=== PATIENT | female | born 1980 | race Caucasian/White ===

== ENCOUNTER 2018-04-01 04:49 | Observation (INO) | END 2018-04-02 14:19 | disposition home or self-care (01) ==

== ENCOUNTER 2018-11-05 17:35 | Inpatient (IN) | payer OTHER ==
[~2018-11-05 17:35] MED LIST: ENOX80DI2 SC
[2018-11-05] MEDS ORDERED: MISOPROSTOL 200 MCG TAB PR PRN (18:30)
[2018-11-05] MEDS ORDERED: OXYTOCIN 30 UNITS/LR 500 ML IV PRN (18:30)
[2018-11-05] MEDS ORDERED: CARBOPROST 250 MCG INJ IM PRN (18:30)
[2018-11-05] MEDS ORDERED: IBUPROFEN 600 MG TAB PO PRN (18:30)
[2018-11-05] MEDS ORDERED: BUTORPHANOL 2 MG INJ IV PRN (18:30)
[2018-11-05] MEDS ORDERED: METHYLERGONOVINE 0.2 MG INJ IM PRN (18:30)
[2018-11-05] MEDS ORDERED: OXYTOCIN 30 UNITS/LR 500 ML IV SCH ×2 (18:30)
[2018-11-05] MEDS ORDERED: LIDOCAINE 1% (MPF) 30 ML INJ INJ PRN (18:30)
--- NOTE | 2018-11-05 19:41 | NSTRPT ---
NST Information Datetime Report Generated by CPN: 11/05/2018 19:41 Datetime: 11/02/2018 08:14 NST Information EGA: 38.2 Test Number: 11 Time on Monitor: 11/02/2018 08:35 Time off Monitor: 11/02/2018 09:02 NST Duration (Min): 27 Reason for NST: Other Reason for NST Other: Advanced Maternal Age, Positive Factor 5/DVT Test and Monitor Explained: Monitor Explained; Test Explained; Verbalized Understanding Pulse: 115 Resp: 19 SBP: 119 DBP: 76 Test Evaluation NST Interventions: None Patient States Movement: Present Contraction Frequency: X1(denies) FHR Baseline : 130 Variability: Moderate 6-25bpm Accelerations: 15X15 Decelerations: None FHR Category: Category I NST Results: Reactive Comments: To u/s. IVETT 14.0cm. CEPHALIC. Electronically Signed By E-Signature: with User ID: [id number] Datetime: 10/30/2018 08:16 NST Information EGA: 37.6 NST Duration (Min): 28 Datetime: 10/26/2018 08:10 NST Information EGA: 37.2 NST Duration (Min): 20 Datetime: 10/23/2018 08:08 NST Information EGA: 36.6 NST Duration (Min): 24 Datetime: 10/19/2018 08:38 NST Information EGA: 36.2 NST Duration (Min): 34 Datetime: 10/16/2018 08:19 NST Information EGA: 35.6 NST Duration (Min): 26 Datetime: 10/12/2018 08:05 NST Information EGA: 35.2 NST Duration (Min): 20 Datetime: 10/09/2018 08:06 NST Information EGA: 34.6 NST Duration (Min): 20 Datetime: 10/05/2018 08:05 NST Information EGA: 34.2 NST Duration (Min): 26 Datetime: 10/02/2018 08:12 NST Information EGA: 33.6 NST Duration (Min): 21 Datetime: 09/28/2018 09:18 NST Information EGA: 33.2 NST Duration (Min): 22 Datetime: 09/25/2018 10:47 NST Information EGA: 32.6 NST Duration (Min): 26
[2018-11-05] MEDS ORDERED: CLINDAMYCIN 900 MG/D5W (PMX) 50 ML IVPB ONE (20:31)
[2018-11-05] MEDS: MISOPROSTOL 50 MCG CAPSULE PO SCH (20:40)
[2018-11-05] MEDS: LACTATED RINGER'S 1,000 ML IV SCH (20:41)
[2018-11-05] MEDS ORDERED: CLINDAMYCIN 900 MG/D5W (PMX) 50 ML IVPB SCH (21:00)
[2018-11-05] MEDS: CLINDAMYCIN 900 MG/D5W (PMX) 50 ML IVPB SCH (21:07)
--- NOTE | 2018-11-05 23:17 | QN ---
Documentation Comment HEMATOLOGY CONSULTATION DICTATED 38 y/o female in 39th week of first . Was diagnosed with RLE DVT 03/2018. Was found to be homozygous for Factor V Leiden mutation. Remainder of evaluation for "thrombophilia" was negative except for sl decrease in Protein S activity. Pt has been receiving enoxaparin, 80 mg BID since diagnosis of DVT. Was also found to be at that time. Pt now admitted to be induced. Last dose of enoxaparin was over 12m hours ago. Should resume therapeutic doses of enoxaparin 6 hours after vaginal delivery or `12 hr after . Continue for 6 weeks. Pt has mildly decreased platelets. Most likely "gestational thrombocytopenia" but should r/o HIT. Will request heparin associated platelet antibodies in AM. Thank you, MD MANUEL Ahumada STANLEY H MD Nov 05, 2018 23:17
--- NOTE | 2018-11-05 23:40 | CONS ---
DATE OF ADMISSION: 11/05/2018 DATE OF CONSULTATION: 11/05/2018 TYPE OF CONSULTATION: Hematology REQUESTING PHYSICIAN: Dr. Fozia Duran REASON FOR CONSULTATION: Thrombophilia, heterozygous for factor V Leiden mutation. Dear Dr. Duran: Thank you very much for asking me to see this very pleasant patient in hematologic consultation. HISTORY OF PRESENT ILLNESS: As you know, Ms. Gonzalez is a 38-year-old female who is entering her 39th w [place] of her first . The patient was diagnosed as having a deep vein thrombosis of the right lower extremity in 03/2018. At that time, the patient was seen in the emergency with painful swelling of the right calf. She was found to have a distal right femoral and popliteal deep vein thrombosis. At that time, the patient did undergo evaluation and was found in fact to be homozygous for factor V Leiden mutation. The patient at that time was also found to be . She was unaware of pregnan cy prior to this. The patient was immediately started on enoxaparin and has been taking enoxaparin 80 mg subcutaneously b.i.d. since that time. The patient is now being admitted to [facility] to undergo induction. The patient did take her last dose of enoxaparin approximately 14 hours ago. As noted, the patient has been found to be homozygous for factor V Leiden mutation. Other evaluation for thrombophilia was negative except that the patient was demonstrated to have a slight decrease of protein S activity of 46. The protein C activity was normal as was the antithrombin III. There was no evidence of a lupus anticoagulant noted. The patient also was negative for prothrombin gene muta tion. The patient has had no complications during this . She has not had any unusual bruising or bleeding. She has not complained of chest pain or shortness of breath. The patient has not had hypertension, edema or gestational hyperglycemia. On admission at this time, the patient's white count is 8300 with an absolute neutrophil count of 620 0, hemoglobin is 12.8, hematocrit 38.2, and platelet count is 104,000. MPV is 11.7. The patient's protime on admission is 11.5 seconds and INR 0.83 and PTT is 31.2. PAST MEDICAL HISTORY: Unremarkable except for a history of exercise-induced asthma. Patient has had no surgical procedures in the past. She has had no previous thromboembolic episodes. As noted, this is the patient's first . She has not taken oral contraceptives in the past o r any type of exogenous hormones. FAMILY HISTORY: Remarkable in that her parents are at least both heterozygous for factor V Leiden mu tation. The patient's father has had 2 different deep vein thromboses. The patient's mother has not had any deep vein thromboses. The patient does have a brother who has not had any thromboembolic ep isodes. He has not been tested but must at least be heterozygous. The remainder of the patient's family history is unremarkable. There is no history of embolism in an y other member of the family. There is no history of increased frequency of spontaneous abortions. MEDICATIONS: Prior to admission included: 1. vitamins. 2. Lovenox 80 mg b.i.d. 3. Occasional albuterol inhaler. ALLERGIES: THE PATIENT IS ALLERGIC TO PENICILLIN. SOCIAL HISTORY: The patient is . 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 She has never knowingly been exposed to industrial toxins or ionizing radiation. The patient has nev er smoked and uses alcohol minimally. Has not had any alcohol during . PHYSICAL EXAMINATION: GENERAL: At this time reveals a well-developed, well-nourished female who is in no acute distress. VITAL SIGNS: Temperature is 98, pulse 88 per minute and regular, respirations 18, blood pressure is 130/60. SKIN: No ecchymosis, no petechiae or rashes. HEENT: Normocephalic. No evidence of trauma. Pupils equal, round, reactive to light and accommodat ion. Sclerae nonicteric. Oral mucosa is moist without lesions. Tongue is well papillated. There i s no gingival hyperplasia or hypertrophied Waldeyer ring, no mucosal telangiectasias. NECK: Supple. No jugular venous distention or thyroid enlargement. No carotid bruits. CHEST: Clear to auscultation and percussion. No rhonchi, wheezes, rales or rubs. HEART: Regular sinus rhythm, no S3, S4 or murmurs. No rubs. ABDOMEN: Distended, consistent with a 39-week . EXTREMITIES: Good range of motion. No clubbing or cyanosis. The right lower extremity calf is larg er in diameter than the left. There is no tenderness. No palpable cords at this time. NEUROLOGIC: Normal. DISCUSSION: This patient was demonstrated to have a deep vein thrombosis which actually led to the d iagnosis of . The patient was found to be homozygous for factor V Leiden mutation. At the same time, there was als o a mild decrease in protein S activity. Protein S is a naturally occurring anticoagulant which can drop at the time of or on exposure to hormones. This, coupled with the factor V Leiden mut ation, is certainly adequate explanation for the patient's deep vein thrombosis. The patient, as noted, has been receiving enoxaparin at therapeutic doses during . This has now been held. The patient will need to resume enoxaparin after delivery. She will then require therapeutic doses f or another 6 weeks. The timing of reinitiation will depend on whether the patient has a vaginal delivery versus as a cesa rean section. If the patient has a vaginal delivery, the enoxaparin can be reinstituted at 6 hours. If there is a , then reinstitution of anticoagulation should be 12 hours. As noted, the patient does have a mild thrombocytopenia. The mean platelet volume is increased. Thi s is most likely a mild thrombocytopenia associated with . The patient, however, has been o n enoxaparin and therefore should be screened for heparin-induced thrombocytopenia, as is expected sh e will continue on a heparin-like agent for at least 6 weeks. Once again, thank you very much for the opportunity of participating in the medical care of this very pleasant patient. I will be happy to follow this patient with you and assist in her hematologic morales luation and followup as necessary. Dictated By: SATISH JACKSON MD SR/NTS Conf#: [id number] DID#: [id number] CC: FOZIA DURAN MD;*End*
[2018-11-06] MEDS: MISOPROSTOL 50 MCG CAPSULE PO SCH ×5 (00:32→20:15)
[2018-11-06] MEDS: CLINDAMYCIN 900 MG/D5W (PMX) 50 ML IVPB SCH ×3 (04:30→20:15)
[2018-11-06] MEDS: LACTATED RINGER'S 1,000 ML IV SCH ×2 (05:58→13:48)
--- NOTE | 2018-11-06 09:13 | PREOPHP ---
DATE OF ADMISSION: 11/05/2018 HISTORY OF PRESENT ILLNESS: This is a 38-year-old lady, 1, and her EDC is 11/13/2018. She w as admitted to labor and delivery area for induction. This patient has a history of hemophilia and h ad been followed up by Dr. Mishra, our perinatologist. She recommended the patient to be delivered at 39 weeks, so she was admitted 11/05 to be started on induction. She has been on Lovenox and stopped her Lovenox 24 hours prior to admission per Dr. Mishra's recommendation. She has a factor V with he sanjaylia. This case was discussed bluntly with Dr. Mishra and she advised the patient to be induced pr ocedures were explained to the patient and she understood everything totally. The risks, benefits an d alternatives were discussed with her as well. PAST PERSONAL HISTORY: No history of TB. The patient has a history of asthma and the last inhaler t hat she used was about 2 years ago. She had menarche at the age of 12. She had care in my [place] office and the care was uneventful. GYNECOLOGICAL HISTORY: She had menarche at the age of 12, every 28 days interval, 3 to 4 days durati on, and moderate in amount. FAMILY HISTORY: Noncontributory. REVIEW OF SYSTEMS: CARDIOVASCULAR: No chest pains. RESPIRATORY: No cough. GASTROINTESTINAL: No diarrhea, no vomiting. GENITOURINARY: No dysuria. PHYSICAL EXAMINATION: GENERAL: Reveals a conscious, coherent lady and in no acute distress. VITAL SIGNS: Her blood pressure 120/80, pulse rate 80 per minute, respirations 16 per minute. BREASTS, HEART AND LUNGS: Within normal limits. ABDOMEN: Soft, fundic height 36 cm. heart tones 140 per minute. PELVIC: On admission revealed the cervix to be fingertip, thick, station -2 in cephalic presentation with the bag of water intact. EXTREMITIES: No pedal edema. ADMITTING DIAGNOSES: 1. A 38 and 6/7 weeks intrauterine . 2. History of hemophilia. PLAN: The patient was planned to be induced and to be delivered at 39 weeks. Dictated By: WINIFRED ARENAS/KAEL Conf#: [id number] DID#: [id number]
[2018-11-06] MEDS ORDERED: MISOPROSTOL 200 MCG TAB PR PRN ×2 (15:00→20:00)
[2018-11-06] MEDS ORDERED: OXYTOCIN 30 UNITS/LR 500 ML IV PRN ×2 (15:00→20:00)
[2018-11-06] MEDS ORDERED: CARBOPROST 250 MCG INJ IM PRN ×2 (15:00→20:00)
[2018-11-06] MEDS ORDERED: METHYLERGONOVINE 0.2 MG INJ IM PRN ×2 (15:00→20:00)
--- NOTE | 2018-11-06 16:49 | PREAC ---
Date/Time of Note Date/Time of Note DATE: 11/06/18 TIME: 16:47 Anesthesia Eval and Record Evaluation Time Pre-Procedure Interview DATE: 11/06/18 TIME: 16:47 Age 38 Sex female NPO: 8 hrs Preoperative diagnosis iup at 39 weeks Planned procedure primary c section Past Medical History Past Medical History: Includes : Other (hx of dvt on lovenox) Surgery & Anesthesia Issues No known issue Meds Anticoagulation: Yes (lovenox stopped 11/04) Beta Vanessa within 24 hr: No Reason Beta Vanessa not given: Pt. not on B-Vanessa Active Scripts Enoxaparin Sodium (Enoxaparin Sodium) 80 Mg/0.8 Ml Syringe, 80 MG SC BID for 14 Days, #28 SYR Prov:LORNA ANDRADE 04/02/18 Enoxaparin Sodium (Enoxaparin Sodium) 80 Mg/0.8 Ml Syringe, 80 MG SC Q12 for 90 Days, #180 SYR 1 Refill Prov:RAYMONDLORNA 04/02/18 Current Medications Lactated Ringer's 1,000 ml @ 125 mls/hr Q8H IV Last administered on 11/06/18at 13:48; Admin Dose 125 MLS/HR; Start 11/05/18 at 18:27 Butorphanol Tartrate (Stadol) 2 mg Q2H PRN IV .PAIN SCALE 6-10; Start 11/05/18 at 18:30 Lidocaine (Xylocaine 1% (Mpf)) 30 ml ONCE PRN INJ .EPISIOTOMY; Start 11/05/18 at 18:30 Oxytocin/Lactated Ringer's 500 ml @ 500 mls/hr ONCE POST IV ; Start 11/05/18 at 18:30 Oxytocin/Lactated Ringer's 500 ml @ 125 mls/hr POST IV ; Start 11/05/18 at 18:30 Ibuprofen (Motrin) 600 mg ONCE PRN PO .PAIN 1-5; Start 11/05/18 at 18:30 Oxytocin/Lactated Ringer's 500 ml @ 0 mls/hr ONCE PRN IV .VAGINAL BLEEDING; Start 11/05/18 at 18:30 Methylergonovine Maleate (Methergine) 0.2 mg ONCE PRN IM .VAGINAL BLEEDING; Start 11/05/18 at 18:30 Carboprost Tromethamine (Hemabate) 250 mcg ONCE PRN IM .VAGINAL BLEEDING; Start 11/05/18 at 18:30 Misoprostol (Cytotec) 1,000 mcg ONCE PRN NV .VAGINAL BLEEDING; Start 11/05/18 at 18:30 Misoprostol (Cytotec 50 Mcg Capsule) 50 mcg Q4 PO Last administered on 11/06/18at 12:32; Admin Dose 50 MCG; Start 11/05/18 at 20:00 Clindamycin HCl/ Dextrose 50 ml @ 50 mls/hr Q8 IVPB Last administered on 11/06/18at 12:32; Admin Dose 50 MLS/HR; Start 11/05/18 at 21:00 Oxytocin/Lactated Ringer's 500 ml @ 0 mls/hr ONCE PRN IV .VAGINAL BLEEDING; Start 11/06/18 at 15:00 Methylergonovine Maleate (Methergine) 0.2 mg ONCE PRN IM .VAGINAL BLEEDING; Start 11/06/18 at 15:00 Carboprost Tromethamine (Hemabate) 250 mcg ONCE PRN IM .VAGINAL BLEEDING; Start 11/06/18 at 15:00 Misoprostol (Cytotec) 1,000 mcg ONCE PRN NV .VAGINAL BLEEDING; Start 11/06/18 at 15:00 Meds reviewed: Yes Allergies Coded Allergies: Penicillins (Verified Allergy, Unknown, 04/01/18) Allergies Reviewed: Yes Labs/Studies Labs Reviewed: Reviewed by anesthesiologist Result Diagram: 11/06/18 0613 11/05/18 1911 Laboratory Tests 11/05/18 19:11 11/06/18 06:13 Blood Bank Test 11/05/18 19:11 Antibody Screen NEGATIVE Blood Type O POSITIVE Rh Immune Globulin Candidate NO test: Positive Pre-procedure Exam Airway: Adequate mouth opening, Adequate thyromental dist Mallampati: Mallampati I Teeth: Normal Lung: Normal Heart: Normal ASA Physical Status ASA physical status: 2 Emergency: None Planned Anesthetic Neuraxial: Spinal Planned Pain Management Sub-arachniod narcotics, Parenteral pain med Pre-operative Attestations Prior to commencing anesthesia and surgery, the patient was re-evaluated, there was verification of: *The patient's identity *The results of appropriate recent lab work and preoperative vital signs *The above evaluation not changing prior to induction *Anesthetic plan, risk benefits, alternative and complications discussed with patient/family; questions answered; patient/family understands, accepts and wishes to proceed. DIMITRI CAO Nov 06, 2018 16:49
--- NOTE | 2018-11-06 16:52 | PN ---
DATE: 11/06/2018 SUBJECTIVE: The patient states she is feeling well. No complaints of abdominal pain. She has not e xperienced any contractions. The patient denies any shortness of breath or chest pain. PHYSICAL EXAMINATION GENERAL: The patient is a well-developed, well-nourished female in no acute distress. VITAL SIGNS: Temperature 98.3 orally, pulse 78 per minute and regular, respirations 17, blood pressu re 105/55, pulse oximetry 96% on room air. SKIN: No ecchymosis, no petechiae or rashes. HEENT: Normocephalic. No evidence of trauma. Pupils equal, round, react to light and accommodation . Sclerae nonicteric. Oral mucosa is moist without lesions. Tongue is well papillated. No gingiva l hyperplasia, no hypertrophy or Waldeyer ring. NECK: Supple. No jugular venous distention or thyroid enlargement. CHEST: Clear to auscultation and percussion. No rhonchi, wheezes, rales or rubs. NODES: No palpable lymphadenopathy in any lymph node bearing area. HEART: Regular sinus rhythm, no S3, S4, murmurs or rubs. ABDOMEN: Distended, consistent with a 39 week . EXTREMITIES: Good range of motion, no clubbing, edema or cyanosis. No palpable cords or Homans sign . There are athrombotic pumps on the lower extremities. NEUROLOGIC: Normal. LABORATORY DATA: White blood cell count 6000 with an absolute neutrophil count of 3700, hemoglobin 1 2.6, hematocrit 38.6, platelet count 79,000 with an MPV of 12.2. ASSESSMENT: 1. A 39 week . 2. Thrombophilia due to homozygosity of factor V Leiden mutation. PLAN: The patient is to be induced. As noted she now has been off of Lovenox for 24 hours. Lovenox will be resumed at therapeutic doses after delivery. It should be reinstituted 6 hours after a vaginal delivery or 12 hours following section. The patient will continue on therapeutic Lovenox for 6 weeks. As noted previously, this patient does have mild thrombocytopenia. Today, platelet count is 79,000 w ith an MPV of 12.2. This suggests peripheral destruction with increased production of young platelet s. As noted in my original consultation, I do feel this is most likely the incidental thrombocytopenia f requently associated with which increases in frequency toward the delivery date. I have requested a heparin-induced platelet antibody studies to make sure the patient does not have H IT which would require a change in her anticoagulation. Dictated By: SATISH JACKSON MD SR/NTS Conf#: [id number] DID#: [id number] CC: WINIFRED VALENZUELA MD;*EndCC*
[2018-11-06] MEDS ORDERED: PHENYLephrine (100 MCG/ML) 10ML SYG ONE (18:00)
[2018-11-06] MEDS ORDERED: DEXAMETHASONE 4 MG/ML 1 ML INJ ONE (18:02)
[2018-11-06] MEDS ORDERED: ONDANSETRON 4 MG INJ ONE (18:03)
[2018-11-06] MEDS ORDERED: morphine SULFATE/PF (10 MG/10 ML) INJ ONE (18:04)
[2018-11-06] MEDS ORDERED: FENTAnyl 50 MCG/ML VIAL ONE (18:04)
[2018-11-06] MEDS ORDERED: OXYTOCIN 30 UNITS/LR 500 ML IV ONE (18:06)
[2018-11-06] MEDS ORDERED: HYDROmorphONE 0.5 MG/0.5 ML SYG IV PRN ×2 (18:30)
[2018-11-06] MEDS ORDERED: DIPHENHYDRAMINE 50 MG INJ IV PRN (18:30)
[2018-11-06] MEDS ORDERED: ZOLPIDEM 5 MG TAB PO PRN (18:30)
[2018-11-06] MEDS ORDERED: NALOXONE (0.4 MG/ML) INJ IV PRN (18:30)
[2018-11-06] MEDS ORDERED: ONDANSETRON 4 MG INJ IV PRN (18:30)
--- NOTE | 2018-11-06 18:50 | PREOPHP ---
DATE OF ADMISSION: 11/05/2018 ADDENDUM HISTORY OF PRESENT ILLNESS: See dictated history and physical. PHYSICAL EXAMINATION: See dictated history and physical. ADMITTING DIAGNOSIS: 39. ADMITTING DIAGNOSIS: This patient is a 38 and 6/7 weeks intrauterine with a hemophiliac wh ere the patient had received Lovenox and had stopped Lovenox per Dr. Mishra's recommendation. Per Dr. Mishra is recommendations, she advised the patient to be induced. On admission, the cervix was fing ertip and thick. She received 5 doses Cytotec 50 mcg After 5 doses, the patient was having mild irre gular contraction. PELVIC: Revealed the cervix to be still fingertip and still thick and station -2. At this point in time, Dr. Mishra was reconsulted and she advised for the patient to have a and that she will be according to Dr. Mishra and Dr. Humphrey the bird keeper. She will be restarted on Lovenox 12 ho urs after the . The plans were explained to the patient and to her and both underst ood everything totally. The risks, benefits, and alternatives were discussed with them as well. Dictated By: WINIFRED ARENAS/KAEL Conf#: [id number] DID#: [id number]
--- NOTE | 2018-11-06 18:54 | CONS ---
DATE OF ADMISSION: 11/05/2018 DATE OF CONSULTATION: 11/06/2018 I do recommend section since the patient has not responded to 6 doses of Cytotec and has bee n off of her therapeutic dose of Lovenox secondary to thrombophilia for 48 hours, therefore 100% I do recommend a section. Dictated By: DANIEL HOUSTON/KAEL Conf#: [id number] DID#: [id number]
[2018-11-06] MEDS ORDERED: LACTATED RINGER'S 1,000 ML IV SCH (19:31)
[2018-11-06] MEDS ORDERED: OXYTOCIN 30 UNITS/LR 500 ML IV SCH (19:31)
--- NOTE | 2018-11-06 19:31 | OPPN ---
Date/Time of Note Date/Time of Note DATE: 11/06/18 TIME: 19:29 Operative Report Planned Procedure Procedure date Nov 06, 2018 Procedure(s) PRIMARY CSECTION Performed by see signature line Associate Manager: GUILLERMO NIXON MD 2nd Associate Manager none Pre-procedure diagnosis 39 WEEKS IUP WITH HISTORY OF HEMOPHILIA [id number] Anesthesia Type: [id number] spinal Post-Procedure Post-procedure diagnosis 39 WEEKS IUP HISTORY OF HEMOPHILIA Findings Live Baby GIRL, Apgars 9and 9, weight [], position [], [] presentation []cord.5LBS 4OZ 19 INCHES LONG Estimated Blood Loss: 500 - 600 mls Specimen(s) none Grafts/Implant(s) PLACENTA Complication(s) none WINIFRED VALENZUELA MD Nov 06, 2018 19:31
[2018-11-06] MEDS ORDERED: LANOLIN HPA 1 PKT TOP PRN (20:00)
[2018-11-06] MEDS ORDERED: METHYLERGONOVINE 0.2 MG TAB PO PRN (20:00)
[2018-11-06 20:15] VITALS: BP 124/77; PULSE 56; RESP 18
[2018-11-06 20:45] VITALS: BP 140/77; PULSE 76
[2018-11-06] MEDS: SENNA/DOCUSATE NA (8.6MG/50MG) TAB PO SCH (21:00)
--- NOTE | 2018-11-06 21:03 | PAC ---
Date/Time of Note Date/Time of Note DATE: 11/06/18 TIME: 21:02 Post-Anesthesia Notes Post-Anesthesia Note Last documented vital signs 125/76 87 15 98% 98.1 TEMP Activity: WNL Respiratory function: WNL Cardiovascular function: WNL Mental status: Baseline Pain reasonably controlled: Yes Hydration appropriate: Yes Nausea/Vomiting absent: Yes DIMITRI CAO Nov 06, 2018 21:03
[2018-11-06] MEDS: KETOROLAC 30 MG INJ IV PRN (23:25)
[2018-11-07] VITALS: BP 112/68; PULSE 58; RESP 18
[2018-11-07 04:00] VITALS: BP 106/58; PULSE 64; RESP 20
[2018-11-07 08:00] VITALS: BP 102/67; PULSE 80; RESP 18
[2018-11-07] MEDS ORDERED: ENOXAPARIN 80 MG/0.8 ML SYG SC SCH ×2 (09:00→10:30)
[2018-11-07] MEDS: SENNA/DOCUSATE NA (8.6MG/50MG) TAB PO SCH ×2 (09:00→21:01)
[2018-11-07] MEDS ORDERED: IBUPROFEN 800 MG TAB PO PRN (09:30)
[2018-11-07] MEDS ORDERED: HYDROCODONE/APAP (5/325) TAB PO PRN (09:30)
--- NOTE | 2018-11-07 09:52 | OPR ---
DATE OF OPERATION: 11/06/2018 PREOPERATIVE DIAGNOSES: A 39 weeks intrauterine in labor, failure to progress and history of hemophilia. POSTOPERATIVE DIAGNOSES: A 39 weeks intrauterine in labor, failure to progress and history of hemophilia. Multiple fibroids in the uterus. She delivered a healthy baby girl, Apgars 9 and 9, at 1815 p.m., weighing 5 pounds 14 ounces, 19 inches long. OPERATION PERFORMED: Primary low transverse section. SURGEON: Winifred Duran MD TUNNEL MUCKER: Jeff Deleon MD ANESTHESIA: Spinal. ANESTHESIOLOGIST: Dr. Head. OPERATIVE TECHNIQUE: Under spinal anesthesia, the patient was prepped and draped in the usual fashio n for abdominal surgery. After checking for the effect of the anesthesia, a Pfannenstiel incision, 1 2 cm skin incision was performed. The incision was carried from the skin up to the fascia. Upon ope rosalind the skin up to the fascia, small blood vessels were noted to be oozing and these were all cauter ized. Fascia was opened transversely followed by splitting the muscles vertically and the peritoneum vertically. Upon opening the abdominal cavity, the bladder blade was put in place. A small tonia wa s performed from the serosa up to the endometrium on the lower uterine segment and the tonia was zaheer ed sideways with the aid of my 2 fingers. My left hand was inserted on the lower segment of the uter us and the bag of water was ruptured. Clear fluid was noted. Baby's head was delivered and baby's a irways were quickly suctioned with amniotic fluid. The anterior shoulder, posterior shoulder, and re st of the body of the baby was delivered. Baby's airway was quickly suctioned with amniotic fluid. Cord was clamped after 30 seconds. The baby was handed to the nursery nurse and to the respiratory t ech. The placenta was delivered manually and complete. The uterus was exteriorized. The uterus was cleansed with wet lap sponge to make sure that no membranes were left behind. After correct s ponge count, the uterus was closed in the usual fashion using #1 chromic for the first layer, continu ous locking suture was used followed by #1 chromic for the second layer, imbricating sutures were use d. Bleeders were checked, and there was no bleeding noted. Both tubes and ovaries were inspected. They were healthy looking. The broad ligament was checked for any hematoma and there was none noted. There were multiple fibroids noted on the uterus, one on the left upper fundal portion of the uteru s measuring about 8 x 8 cm. There were small fibroids, 7 of them, 2 anteriorly and 4 posteriorly tyrone suring from 3 x 3 cm to 1 x 1 cm. All of them were subserosal. Then, after checking for any bleeder s in which there were none, the uterus was put back into the pelvic cavity. Once again, uterine inci jessika was checked for any bleeders and there was no bleeding noted. After correct sponge count, needl e count and instrument count as confirmed by the crime scene evidence technician and stretcher helper, the abdomen was closed in the usual fashion using 0 Vicryl for the peritoneum, 0 Vicryl for the muscles. For the fascia, 0 Vi cryl continuous stitch was used followed by a few [id number] sutures. For the subcutaneous tiss ue, it was closed with 3-0 Vicryl and the skin was closed with 3-0 Vicryl subcuticular suture was use d. The patient tolerated the procedure well. Estimated blood loss about 600 mL. Dictated By: WINIFRED ARENAS/KAEL Conf#: [id number] DID#: [id number]
--- NOTE | 2018-11-07 10:16 | OPPN ---
Date/Time of Note Date/Time of Note DATE: 11/07/18 TIME: 10:15 Anesthesia Follow up Anesthesia Follow up Last documented vital signs Vital Signs Date Temp Pulse Resp B/P (MAP) Pulse Ox O2 O2 Flow FiO2 Time Delivery Rate 11/07/18 98.7 80 18 102/67 98 Room Air 08:00 (79) Respiratory function: WNL Cardiovascular function: WNL Comments satisfactory pain control with intrathecal duramorph. no complications DIMITRI CAO Nov 07, 2018 10:16
[2018-11-07] MEDS: ENOXAPARIN 80 MG/0.8 ML SYG SC SCH ×2 (10:25→21:00)
[2018-11-07] MEDS: KETOROLAC 30 MG INJ IV PRN ×2 (11:23→17:22)
[2018-11-07 12:00] VITALS: BP 102/67; PULSE 75; RESP 16
[2018-11-07 16:47] VITALS: BP 103/65; PULSE 77; RESP 18
--- NOTE | 2018-11-07 16:54 | QN ---
Documentation Comment Pt is doing very well postoperatively. Presently she is nursing her baby and three family members are with her. She has not had any unusual bleeding on the pads and feels good. Lovenox was given earlier this morning with the intent of continuing it for about six weeks or until she is fully ambulatory. ANNETTE ESPINOZA MD Nov 07, 2018 16:54
[2018-11-07 20:45] VITALS: BP 110/59; PULSE 86; RESP 18
[2018-11-08 04:00] VITALS: BP 106/63; PULSE 91; RESP 17
[2018-11-08] MEDS: HYDROCODONE/APAP (5/325) TAB PO PRN ×4 (05:42→20:00)
[2018-11-08 08:00] VITALS: BP 99/56; PULSE 82; RESP 18
--- NOTE | 2018-11-08 08:48 | PN ---
Date/Time of Note Date/Time of Note DATE: 11/07/18 TIME: 6:00pm Assessment/Plan VTE Prophylaxis Risk score (from Nsg)>0 risk: 6 SCD applied (from Nsg): No SCD contraindicated: low risk/ambulating Pharmacological prophylaxis: NA/contraindicated Pharm contraindication: low risk/ambulating Lines/Catheters IV Catheter Type (from Nrsg): Saline Lock Assessment/Plan Assessment/Plan POSTCSECTION DAY 1 ORDERED ADVANCE DIET TOLERATED CBC ON 3RD POSTOP DAY Result Diagram: 11/07/18 0637 11/07/18 0637 Subjective 24 Hr Interval Summary Free Text/Dictation POST CSECTION DAY 1 COMPLAIN OF INCISIONAL PAINS GOOD URINE OUTPUT PASSING GAS PER RECTUM NO BOWEL MOVEMENT YET Exam/Review of Systems Exam Vitals Vital Signs Date Temp Pulse Resp B/P (MAP) Pulse Ox O2 O2 Flow FiO2 Time Delivery Rate 11/08/18 98.1 91 17 106/63 Room Air 04:00 (77) 11/07/18 96 16:47 Intake and Output 11/07/18 11/07/18 11/08/18 1515:00 23:00 07:00 IntakeIntake Total 1000 ml OutputOutput Total 950 ml 850 ml BalanceBalance -950 ml 150 ml Exam VITAL SIGNS STABLE: YES AFEBRILE: YES BREAST NOT ENGORGED, NON-TENDER, NO APPRECIABLE MASS: YES LUNGS CLEAR, NO RALES, WHEEZES, RHONCHI: YES SINUS RHYTHM WITHOUT MURMUR: YES ABDOMEN: NON-TENDER FUNDUS: BELOW UMBILICUS BOWEL SOUNDS: PRESENT UTERUS: FIRM INCISION (CLEAN, DRY, AND INTACT): YES LOCHIA: LIGHT DEEP TENDON REFLEXES: 0 EXTREMITIES: NO CALF TENDERNESS EDEMA SCALE: NONE Medications Medication Current Medications Oxytocin/Lactated Ringer's 500 ml @ 500 mls/hr ONCE POST IV ; Start 11/05/18 at 18:30 Oxytocin/Lactated Ringer's 500 ml @ 125 mls/hr POST IV ; Start 11/05/18 at 18:30 Carboprost Tromethamine (Hemabate) 250 mcg ONCE PRN IM .VAGINAL BLEEDING; Start 11/06/18 at 15:00 Miscellaneous Information (* Miscellaneous Pharmacy Order) Duramorph: .2 mg Spi... GIVEN XX ; Start 11/06/18 at 18:30 Methylergonovine Maleate (Methergine) 0.2 mg Q6H PRN PO .VAGINAL BLEEDING; Start 11/06/18 at 20:00 Simethicone (Mylicon) 160 mg Q8H PRN PO .GAS; Start 11/06/18 at 20:00 Senna/Docusate Sodium (Senokot-S) 1 tab BID PO Last administered on 11/07/18at 21:01; Admin Dose 1 TAB; Start 11/06/18 at 21:00 Lanolin (Lanolin Hpa) 1 applic BEDSIDE MEDICATION PRN TOP .NIPPLES; Start 11/06/18 at 20:00 Diphtheria/ Tetanus/Acell Pertussis (Adacel) 0.5 ml ONCE ONCE IM* ; Start 11/09/18 at 09:00; Stop 11/09/18 at 09:01 Measles/Mumps/ Rubella Vaccine Live (Mmr Ii Vaccine) 0.5 ml ONCE ONCE SC* ; S tart 11/09/18 at 09:00; Stop 11/09/18 at 09:01 Oxytocin/Lactated Ringer's 500 ml @ 0 mls/hr ONCE PRN IV .VAGINAL BLEEDING; Start 11/06/18 at 20:00 Methylergonovine Maleate (Methergine) 0.2 mg ONCE PRN IM .VAGINAL BLEEDING; Start 11/06/18 at 20:00 Carboprost Tromethamine (Hemabate) 250 mcg ONCE PRN IM .VAGINAL BLEEDING; Start 11/06/18 at 20:00 Misoprostol (Cytotec) 1,000 mcg ONCE PRN OR .VAGINAL BLEEDING; Start 11/06/18 at 20:00 Ibuprofen (Motrin) 800 mg Q6H PRN PO MILD PAIN LEVEL 1-3 Last administered on 11/08/18at 00:26; Admin Dose 800 MG; Start 11/07/18 at 09:30 Acetaminophen/ Hydrocodone Bitart ([place] (5/325)) 1 tab Q4H PRN PO MODERATE PAIN LEVEL 4-6 Last administered on 11/07/18at 21:01; Admin Dose 1 TAB; Start 11/07/18 at 09:30 Acetaminophen/ Hydrocodone Bitart ([place] (5/325)) 2 tab Q4H PRN PO SEVERE PAIN LEVEL 7-10 Last administered on 11/08/18at 05:42; Admin Dose 2 TAB; Start 11/07 at 09:30 Enoxaparin Sodium (Lovenox) 80 mg BID SC Last administered on 11/07/18at 21:00; Admin Dose 80 MG; Start 11/07/18 at 10:30 WINIFRED VALENZUELA MD Nov 08, 2018 08:48
[2018-11-08] MEDS: SENNA/DOCUSATE NA (8.6MG/50MG) TAB PO SCH ×2 (09:38→21:04)
[2018-11-08] MEDS: ENOXAPARIN 80 MG/0.8 ML SYG SC SCH ×2 (09:42→21:01)
[2018-11-08] MEDS: GUAIFENESIN/DM 5ML CUP PO PRN ×2 (14:05→23:22)
--- NOTE | 2018-11-08 14:45 | QN ---
Documentation Comment Pt is walking and is not bleeding. She still has some incisional pain as expected from the C section. We discussed again the Lovenox and I will bring prescription to her tomorrow in anticipation of discharge. ANNETTE ESPINOZA MD Nov 08, 2018 14:45
--- NOTE | 2018-11-08 16:19 | PN ---
Date/Time of Note Date/Time of Note DATE: 11/08/18 TIME: 16:18 Assessment/Plan VTE Prophylaxis Risk score (from Nsg)>0 risk: 1 SCD applied (from Nsg): No SCD contraindicated: low risk/ambulating Pharmacological prophylaxis: NA/contraindicated Pharm contraindication: low risk/ambulating Lines/Catheters IV Catheter Type (from Nrsg): Saline Lock Assessment/Plan Assessment/Plan HOME TOMORROW CBC TOMORROW COUNSELED INSTRUCTED PRESCRIPTION GIVEN FOR PAIN RETURN TO CLINIC IN 2 WEEKS CALL OFFICE IF THERE IS ANY PROBLEM OR CONCERN CONTINUE WITH VITAMINS OD AND FERROUS SULFATE 325MG PO TID DIET ADVISED Result Diagram: 11/07/18 0637 11/07/18 0637 Subjective 24 Hr Interval Summary Free Text/Dictation POST CSECTION DAY 2 LITTLE BOWEL MOVEMENT GOOD URINE OUTPUT FEELS LESS INCISIONAL PAINS Exam/Review of Systems Exam Vitals Vital Signs Date Temp Pulse Resp B/P (MAP) Pulse Ox O2 O2 Flow FiO2 Time Delivery Rate 11/08/18 98.2 82 18 99/56 (70) Room Air 08:00 11/07/18 96 16:47 Intake and Output 11/07/18 11/07/18 11/08/18 1515:00 23:00 07:00 IntakeIntake Total 1000 ml OutputOutput Total 950 ml 850 ml BalanceBalance -950 ml 150 ml Exam VITAL SIGNS STABLE: YES AFEBRILE: YES BREAST NOT ENGORGED, NON-TENDER, NO APPRECIABLE MASS: YES LUNGS CLEAR, NO RALES, WHEEZES, RHONCHI: YES SINUS RHYTHM WITHOUT MURMUR: YES ABDOMEN: NON-TENDER FUNDUS: BELOW UMBILICUS BOWEL SOUNDS: PRESENT UTERUS: FIRM INCISION (CLEAN, DRY, AND INTACT): YES LOCHIA: LIGHT DEEP TENDON REFLEXES: 0 EXTREMITIES: NO CALF TENDERNESS EDEMA SCALE: NONE Medications Medication Current Medications Oxytocin/Lactated Ringer's 500 ml @ 500 mls/hr ONCE POST IV ; Start 11/05/18 at 18:30 Oxytocin/Lactated Ringer's 500 ml @ 125 mls/hr POST IV ; Start 11/05/18 at 18:30 Miscellaneous Information (* Miscellaneous Pharmacy Order) Duramorph: .2 mg Spi... GIVEN XX ; Start 11/06/18 at 18:30 Methylergonovine Maleate (Methergine) 0.2 mg Q6H PRN PO .VAGINAL BLEEDING; Start 11/06/18 at 20:00 Simethicone (Mylicon) 160 mg Q8H PRN PO .GAS; Start 11/06/18 at 20:00 Senna/Docusate Sodium (Senokot-S) 1 tab BID PO Last administered on 11/08/18at 09:38; Admin Dose 1 TAB; Start 11/06/18 at 21:00 Lanolin (Lanolin Hpa) 1 applic BEDSIDE MEDICATION PRN TOP .NIPPLES; Start 11/06/18 at 20:00 Diphtheria/ Tetanus/Acell Pertussis (Adacel) 0.5 ml ONCE ONCE IM* ; Start 11/09/18 at 09:00; Stop 11/09/18 at 09:01 Measles/Mumps/ Rubella Vaccine Live (Mmr Ii Vaccine) 0.5 ml ONCE ONCE SC* ; Start 11/09/18 at 09:00; Stop 11/09/18 at 09:01 Oxytocin/Lactated Ringer's 500 ml @ 0 mls/hr ONCE PRN IV .VAGINAL BLEEDING; Start 11/06/18 at 20:00 Methylergonovine Maleate (Methergine) 0.2 mg ONCE PRN IM .VAGINAL BLEEDING; Start 11/06/18 at 20:00 Carboprost Tromethamine (Hemabate) 250 mcg ONCE PRN IM .VAGINAL BLEEDING; Start 11/06/18 at 20:00 Misoprostol (Cytotec) 1,000 mcg ONCE PRN CO .VAGINAL BLEEDING; Start 11/06/18 at 20:00 Ibuprofen (Motrin) 800 mg Q6H PRN PO MILD PAIN LEVEL 1-3 Last administered on 11/08/18at 00:26; Admin Dose 800 MG; Start 11/07/18 at 09:30 Acetaminophen/ Hydrocodone Bitart ([place] (5/325)) 1 tab Q4H PRN PO MODERATE PAIN LEVEL 4-6 Last administered on 11/07/18at 21:01; Admin Dose 1 TAB; Start 11/07/18 at 09:30 Acetaminophen/ Hydrocodone Bitart ([place] (5/325)) 2 tab Q4H PRN PO SEVERE PAIN LEVEL 7-10 Last administered on 11/08/18at 14:16; Admin Dose 2 TAB; Start 7/24/19 at 09:30 Enoxaparin Sodium (Lovenox) 80 mg BID SC Last administered on 11/08/18at 09:42; Admin Dose 80 MG; Start 11/07/18 at 10:30 Guaifenesin/ Dextromethorphan (Robitussin Dm Liquid Cup) 10 ml TID PRN PO COUGH Last administered on 11/08/18at 14:05; Admin Dose 10 ML; Start 11/08/18 at 13:00 WINIFRED VALENZUELA MD Nov 08, 2018 16:19
[2018-11-08 20:00] VITALS: BP 111/71; PULSE 102; RESP 18
[2018-11-09] MEDS: HYDROCODONE/APAP (5/325) TAB PO PRN ×4 (00:15→12:55)
[2018-11-09 04:00] VITALS: BP 116/72; PULSE 91; RESP 20
[2018-11-09] MEDS: SENNA/DOCUSATE NA (8.6MG/50MG) TAB PO SCH (08:42)
[2018-11-09] MEDS: GUAIFENESIN/DM 5ML CUP PO PRN ×2 (08:44→12:55)
[2018-11-09 08:45] VITALS: BP 100/51; PULSE 84; RESP 18
[2018-11-09] MEDS: ENOXAPARIN 80 MG/0.8 ML SYG SC SCH (08:46)
[2018-11-09] MEDS ORDERED: DIPHTH/TET/ACEL PERTUSS (ADULT) 0.5 ML VIAL IM* ONE (09:00)
[2018-11-09] MEDS ORDERED: MEASLES,MUMPS,RUBELLA VACCINE INJ SC* ONE (09:00)
--- NOTE | 2018-11-09 11:01 | QN ---
Documentation Comment Pt is doing well. At present she is breast feeding her infant and denies pain issues. She will likely be discharged. I wrote Rx for Lovenox 80 mg bid and gave it to her and her . She is also asked to f/u with Dr. Poe after discharge. ANNETTE ESPINOZA MD Nov 09, 2018 11:01
--- NOTE | 2018-11-10 18:24 | DELSUM ---
Delivery Summary A-C Datetime Report Generated by CPN: 11/10/2018 18:24 DELIVERY PERSONNEL Internal Wholesaler: Thomas, [place] MATERNAL INFORMATION Delivery Anesthesia: Spinal Medications in Delivery: see anesthesia records Delivery QBL (ml): 600 Placenta Cultured: No Maternal Complications: Other Other Maternal Complications: RN Comments: thromobophilia LABOR SUMMARY EDC: 11/13/2018 00:00 No. Babies in Womb: 1 Attempted: No Labor Anesthesia: None LABOR INFORMATION Reason for Induction: Other Reason for Induction- Other: thrombophilia Cervical Ripening Agents: Cytotec @ 50 Group B Beta Strep: Positive Antibiotics # of Doses: 4 Antibiotics Time of Last Dose: 11/06/2018 17:59 Steroids Given: None Reason Steroids Not Administered: Not Applicable MEMBRANES Membranes Rupture Method: Artificial Rupture of Membranes: 11/06/2018 18:15 Length of Rupture (hr): 0.00 Amniotic Fluid Color: Clear Amniotic Fluid Amount: Small Amniotic Fluid Odor: Normal STAGES OF LABOR Stage 3 hr: 0 Stage 3 min: 1 CSECTION DELIVERY Primary Indication: Failed Induction Other Primary Indication: thrombophilia CSection Urgency: Elective CSection Incidence: Primary Labor: No Labor Elective: Elective CSection Incision: Lower Uterine Transverse BABY A INFORMATION Delivery Date/Time: 11/06/2018 18:15 Method of Delivery: Born in Route : No : N/A Forceps: N/A Vacuum Extraction: N/A Shoulder Dystocia : No SHOULDER DYSTOCIA BABY A Delivery Date/Time: 11/06/2018 18:15 PRESENTATION/POSITION BABY A Presentation: Cephalic Cephalic Presentation: Vertex Vertex Position: Left Occipital Anterior Breech Presentation: N/A PLACENTA INFORMATION BABY A Placenta Delivery Time : 11/06/2018 18:16 Placenta Method of Delivery: Manual Removal Placenta Status: Delivered SCORES BABY A Heart Rate 1 min: >100 bpm Resp Effort 1 min: Good Cry Reflex Irritability 1 min: Cough/Sneeze/Pulls Away Muscle Tone 1 min: Active Motion Color 1 min: Body [place], Extremit Blue Resuscitation Effort 1 min: Tactile Stimulation SCORE 1 MIN: 9 Heart Rate 5 min: >100 bpm Resp Effort 5 min: Good Cry Reflex Irritability 5 min: Cough/Sneeze/Pulls Away Muscle Tone 5 min: Active Motion Color 5 min: Body [place], Extremit Blue SCORE 5 MIN: 9 INFORMATION BABY A Gestational Age at Delivery: 38.6 Gestational Status: Early Term- 37- 38.6 Weeks Outcome : Liveborn, with signs of life Condition : Stable Infant Sex: Female IDENTIFICATION/MEDS BABY A ID Band Number: [id number] ID Band Location: Right Leg; Left Arm Sensor Applied: Yes Sensor Number: [id number] Sensor Location : Cord Clamp Vitamin K Given : Not Given Erythromycin Given: Not Given WEIGHT/LENGTH BABY A Infant Birthweight (gm): 2675 Weight (lb): 5 Infant Weight (oz): 14 Infant Length (in): 19.00 Infant Length (cm): 48.26 CORD INFORMATION BABY A No. Cord Vessels: 3 Nuchal Cord : Around Neck x1, Loose Suction: Mouth; Nose ASSESSMENT BABY A Complications: None Physical Findings at Delivery: Within Normal Limits Infant Respirations: Appears Normal Toddler Caregiver/ALS Called : No Care By: /edilma Transferred To: Remains with Mother
== END 2018-11-09 18:23 | disposition home or self-care (01) | DRG 788 ==
LOC: L-D 17:35 → EDSTATUS 11-06 17:39 → L-D 11-06 17:59 → PP1 11-06 20:11
PROVIDERS: ADMIT Obstetrics & Gynecology; ATTEND Obstetrics & Gynecology
PROC: 10D00Z1 Extraction of Products of Conception, Low, Open Approach (ICD-10-PCS; principal; 2018-11-07)
PROC: 3E033VJ Introduction of Other Hormone into Peripheral Vein, Percutaneous Approach (ICD-10-PCS; 2018-11-07)
DX: O62.0 Primary inadequate contractions (principal); O34.13 Maternal care for benign tumor of corpus uteri, third trimester; Z3A.39 39 weeks gestation of pregnancy; Z37.0 Single live birth
CPT/HCPCS: 76815; 80048; 80053; 85025; 85049; 85610; 85670; 85730; 86022; 86592; 86706; 86850; 86900; 86901; 99464; J1100; J1200; J1885; J2274; J2370; J2405; J2590; J3010; J7120

== ENCOUNTER 2018-12-10 23:00 | Emergency (ER) | payer OTHER ==
[~2018-12-10] VITALS: Ht 172.7 cm; Wt 81.8 kg
[~2018-12-10 23:00] MED LIST changes: +METR500T PO
[2018-12-10 23:09] VITALS: Ht 172.7 cm; Wt 81.8 kg
[2018-12-11] MEDS ORDERED: IBUPROFEN LIQUID (PED) 20 MG/ML CUP PO STA (01:59)
[2018-12-11 02:24] VITALS: BP 104/69; PULSE 97; RESP 17
== END 2018-12-11 02:24 | disposition home or self-care (01) ==
LOC: FTE 23:00
DX: O90.89 Other complications of the puerperium, not elsewhere classified (principal); R19.7 Diarrhea, unspecified
CPT/HCPCS: 87045; 87075; Z7502; 99283

== ENCOUNTER 2018-12-28 21:38 | Emergency (ER) | payer OTHER ==
[~2018-12-28] VITALS: Ht 172.7 cm; Wt 79.4 kg
[~2018-12-28 21:38] MED LIST changes: +ACET500C5 PO; +ENOX80DI12 SC
[2018-12-28 22:41] VITALS: Ht 172.7 cm; Wt 79.4 kg
[2018-12-29] MEDS ORDERED: ENOXAPARIN 80 MG/0.8 ML SYG SC SCH (00:30)
[2018-12-29 01:23] VITALS: BP 129/80; PULSE 81; RESP 15
== END 2018-12-29 01:28 | disposition home or self-care (01) ==
LOC: FTE 21:38
DX: I82.4Z2 Acute embolism and thrombosis of unspecified deep veins of left distal lower extremity (principal); J45.909 Unspecified asthma, uncomplicated
CPT/HCPCS: 93971; Z7502